=== PATIENT | female | born 1935 | race Caucasian/White ===

== ENCOUNTER 2017-10-10 20:38 | Emergency (ER) | payer BC, MEDICARE ==
--- NOTE | 2017-10-10 21:21 | Emergency Department Record ---
History of Present Illness - General Chief complaint: Pain Stated complaint: RT SHOULDER PAIN Time Seen by Provider: 10/10/17 20:53 Source: Patient Mode of Arrival: Ambulatory Limitations: No limitations - History of Present Illness Initial comments: 81 yo female presents with right shoulder and elbow pain. She had a mild fall 3 weeks ago against a door. She had mild pain. The last week the right shoulder pain has increased. She has pain with any movement, lifting, weight bearing. No swelling. No weakness. No numbness. She has not seen her doctor about this problem because she thought it would self resolve. She is taking Excedrin for the pain. Dr Cain is her PCP. MD Complaint: Joint pain Onset/Timin -: Week(s) Location: Right, Shoulder -: Yes Arthralgia Radiation: None, Proximal Severity scale (1-10): 8 Quality: Aching Consistency: Constant Improves with: Nothing Worsens with: Nothing Associated Symptoms: Denies other symptoms - Related Data Previous Rx's Medication Instructions Recorded Acetaminop W/ Codeine 300/30Mg 1 tab PO Q6H #12 tab 10/10/17 [Tylenol #3] Allergies Allergy/AdvReac Type Severity Reaction Status Date / Time No Known Allergies Allergy Unverified 10/03/16 14:03 Travel Screening - Travel/Exposure Within Last 30 Days Have you traveled within the last 30 days?: No Review of Systems Constitutional: Denies: Chills, Fever, Malaise, Weakness Eyes: Denies: Eye discharge, Vision change (chronic blindness) ENT: Denies: Congestion Respiratory: Denies: Cough, Dyspnea, Hemoptysis, Wheezes Cardiovascular: Denies: Chest pain, Syncope Endocrine: Denies: Fatigue Gastrointestinal: Denies: Abdominal pain, Diarrhea, Nausea, Vomiting Genitourinary: Denies: Dysuria, Urgency Musculoskeletal: Reports: As per HPI, Arthralgia Skin: Denies: Bruising, Change in color, Rash Neurological: Denies: Headache, Numbness, Weakness Psychiatric: Denies: Anxiety Hematological/Lymphatic: Denies: Easy bleeding, Easy bruising Past Medical History - SOCIAL HISTORY Smoking Status: Never smoker Alcohol Use: None Drug Use: None - RESPIRATORY Hx Respiratory Disorders: Yes Hx COPD: Yes - CARDIOVASCULAR Hx Cardio Disorders: No - NEURO Hx Neuro Disorders: Yes Comment:: Right eye Stroke - GI Hx GI Disorders: No - Hx Genitourinary Disorders: No - ENDOCRINE Hx Endocrine Disorders: No - MUSCULOSKELETAL Hx Musculoskeletal Disorders: No - PSYCH Hx Psych Problems: No - HEMATOLOGY/ONCOLOGY Hx Hematology/Oncology Disorders: No Family Medical History Any Significant Family History?: No Course Vital Signs 10/10/17 21:02 Temperature 97.8 F Pulse Rate [ 54 L Pulse Ox Probe] Respiratory 16 Rate Blood Pressure 117/69 [Left Arm] Pulse Ox 96 - Reevaluation(s) Reevaluation #1: The XR of the shoulder and elbow reviewed. No acute fracture Severe osteopenia Degenerative changes noted. 10/10/17 21:35 10/10/17 22:13 Disposition Disposition: Discharge Clinical Impression: Shoulder arthralgia Qualifiers: Laterality: right Qualified Code(s): M25.511 - Pain in right shoulder Disposition: Home, Self-Care Condition: (1) Good Instructions: Arthralgia (ED) Additional Instructions: Ice the shoulder Call your doctor tomorrow to be seen You have been referred to Dr Lara in the pain continues If you take a Tylenol with codeine take fiber or a stool softner as this can cause constipation You will need to assist her will all walking has she can be a fall risk Prescriptions: Acetaminop W/ Codeine 300/30Mg [Tylenol #3] 1 tab PO Q6H #12 tab Referrals: CAREN LARA [DOCTOR OF OSTEOPATH] - Forms: Patient Portal Access Time of Disposition: 22:15 Quality - Quality Measures Quality Measures: N/A - Blood Pressure Screening Does Patient Have Any of the Following: No Blood Pressure Classification: Normal BP Reading Systolic Measurement: 117 Diastolic Measurement: 69 Screening for High Blood Pressure: < Normal BP, F/U Not Required > [G8783]
[2017-10-10] MEDS ORDERED: ACETAMINOPHEN W/ CODEINE 300MG/30MG TABLET PO ONE (22:00)
--- NOTE | 2017-10-12 23:28 | RADIOLOGY REPORT ---
EXAM: SHOULDER, RIGHT HISTORY: PAIN. TECHNIQUE: Three views of the right shoulder were performed. FINDINGS: There is severe osteopenia. No definitive fracture or dislocation is appreciated. IMPRESSION: SEVERE OSTEOPENIA. NO DEFINITIVE FRACTURE OR DISLOCATION. JOB NUMBER: [id number] MTDD
== END 2017-10-10 22:30 | disposition home or self-care (01) ==
LOC: ER 20:38
DX: G89.11 Acute pain due to trauma (principal); M25.511 Pain in right shoulder; M25.521 Pain in right elbow; J44.9 Chronic obstructive pulmonary disease, unspecified
CPT/HCPCS: 99283

== ENCOUNTER 2018-11-27 18:52 | Emergency (ER) | payer MEDICARE, BC ==
[2018-11-27] MEDS ORDERED: MORPHINE SULFATE 10MG/1ML **1ML VIAL IVP ONE (19:15)
[2018-11-27] MEDS ORDERED: 0.9 % SODIUM CHLORIDE 1000ML 500 ML IV SCH (19:15)
[2018-11-27] MEDS ORDERED: ONDANSETRON HCL IV 4 MG/2 ML VIAL IVP ONE (19:15)
--- NOTE | 2018-11-27 19:19 | Emergency Department Record ---
History of Present Illness - General Chief Complaint: Back Pain/Injury Stated Complaint: LOWER BACK PAIN Time Seen by Provider: 11/27/18 18:56 Source: Patient Mode of Arrival: Stretcher Limitations: No limitations - History of Present Illness Initial Comments: 82 yo female presents to ED for evaluation of low-back pain symptoms that began this morning, denies specific injury, but reports that she slept on a family member's bed last night that she is unaccustomed to. Patient reports that she is unable to stand from sitting or supine, denies numbness or weakness to the lower extremities. Patient denies urinary retention symptoms or numbness over t he groin region. Patient has not taken anything for pain as she does not ahve anything for pain at home. MD Complaint: Back pain Onset/Timin -: Hour(s) Similar Symptoms Previously: No Place: Home Severity: Moderate Severity scale (1-10): 9 Quality: Sharp, Stabbing Consistency: Constant Improves With: None Worsens With: Movement, Walking Context: Other Associated Symptoms: Denies other symptoms - Related Data Previous Rx's Medication Instructions Recorded Hydrocodone/Acetaminophen [Idanha 1 tab PO Q6H PRN #10 tab 11/27/18 5mg/325mg] Allergies Allergy/AdvReac Type Severity Reaction Status Date / Time No Known Drug Allergies Allergy Verified 11/27/18 19:10 Travel Screening - Travel/Exposure Within Last 30 Days Have you traveled within the last 30 days?: No - Travel/Exposure Within Last Year Have you traveled outside the [place] in the last year?: No - Additonal Travel Details Have you been exposed to anyone with a communicable illness?: No - Travel Symptoms Symptom Screening: None Review of Systems Constitutional: Denies: Chills, Fever, Malaise, Night sweats Eyes: Denies: Eye discharge, Eye pain ENT: Denies: Congestion, Ear pain, Epistaxis Respiratory: Denies: Cough, Dyspnea Cardiovascular: Denies: Chest pain, Dyspnea on exertion Endocrine: Denies: Fatigue, Heat or cold intolerance Gastrointestinal: Denies: Abdominal pain, Nausea, Vomiting Genitourinary: Denies: Incontinence, Retention Musculoskeletal: Reports: Back pain. Denies: Arthralgia, Gout, Joint swelling Skin: Denies: Bruising, Change in color Neurological: Denies: Abnormal gait, Confusion, Headache, Seizure Psychiatric: Denies: Anxiety Hematological/Lymphatic: Denies: Anemia, Blood Clots Past Medical History - SOCIAL HISTORY Smoking Status: Current every day smoker Alcohol Use: Occasional Drug Use: None - RESPIRATORY Hx Respiratory Disorders: Yes Hx COPD: Yes Hx Pneumonia: Yes - CARDIOVASCULAR Hx Cardio Disorders: No - NEURO Hx Neuro Disorders: Yes Comment:: Right eye Stroke - GI Hx GI Disorders: No - Hx Genitourinary Disorders: No - ENDOCRINE Hx Endocrine Disorders: No - MUSCULOSKELETAL Hx Musculoskeletal Disorders: No - PSYCH Hx Psych Problems: No - HEMATOLOGY/ONCOLOGY Hx Hematology/Oncology Disorders: No Family Medical History Any Significant Family History?: No Physical Exam - General General Appearance: Alert, Oriented x3, Cooperative, Moderate distress Limitations: No limitations - Head Head exam: Atraumatic, Normocephalic, Normal inspection Head exam detail: negative: Abrasion, Contusion, Johnson's sign, General t enderness, Hematoma, Laceration - Eye Eye exam: Normal appearance. negative: Conjunctival injection, Periorbital swelling, Periorbital tenderness, Scleral icterus - ENT Ear exam: negative: Auricular hematoma, Auricular trauma Nasal Exam: negative: Active bleeding, Discharge, Dried blood, Foreign body Mouth exam: negative: Drooling, Laceration, Muffled voice, Tongue elevation - Neck Neck exam: Normal inspection. negative: Meningismus, Tenderness - Respiratory Respiratory exam: Normal lung sounds bilaterally. negative: Rales, Respiratory distress, Rhonchi, Stridor - Cardiovascular Cardiovascular Exam: Regular rate, Normal rhythm, Normal heart sounds - GI/Abdominal GI/Abdominal exam: Soft. negative: Rebound, Rigid, Tenderness - Rectal Rectal exam: Deferred - exam: Deferred - Extremities Extremities exam: Normal inspection. negative: Pedal edema, Tenderness - Back Back exam: Reports: Paraspinal tenderness, Tenderness (TTP along the left SI joint, paraspinal region on examination) - Neurological Neurological exam: Alert, Oriented X3, Other (EHL 5/5 and symmetric bilaterally). negative: Motor sensory deficit - Psychiatric Psychiatric exam: Normal affect, Normal mood - Skin Skin exam: Normal color. negative: Abrasion Type of lesion: negative: abrasion Course Vital Signs 11/27/18 19:01 Temperature 98.3 F Pulse Rate 74 Respiratory 20 Rate Blood Pressure 143/84 Pulse Ox 98 - Reevaluation(s) Reevaluation #1: 11/27/18 19:42 Laboratory studies were reviewed and appear grossly unremarkable for an acute process. Reevaluation #2: 11/27/18 20:08 Patient reassessed, reports that her pain symptoms are significantly improved. CT interpretation pending. Reevaluation #3: 11/27/18 20:24 CT Lumbar Spine: Moderate spondylolisthesis Scattered disc bulging from L2-L3 to L5-S1 Diffuse neural-foraminal narrowing No acute fracture identified. Reevaluation #4: 11/27/18 21:07 UA reviewed and appears negative for an acute process. Patient continues to report improvement in her pain symptoms, appears stable for discharge at this time. Medical Decision Making - Lab Data Result diagrams: 11/27/18 19:20 11/27/18 19:20 Disposition Disposition: Discharge Clinical Impression: Low back pain Qualifiers: Chronicity: acute Back pain laterality: left Sciatica presence: with sciatica Sciatica laterality: sciatica of left side Qualified Code(s): M54.42 - Lumbago with sciatica, left side Disposition: Home, Self-Care Condition: (2) Stable Instructions: Low Back Strain (ED) Additional Instructions: Return to ED if your symptoms worsen or if you have any concerns. Idanha as directed. Follow-up with your family doctor in 3-5 days as directed. Prescriptions: Hydrocodone/Acetaminophen [Idanha 5mg/325mg] 1 tab PO Q6H PRN #10 tab PRN Reason: Pain - General Forms: Patient Portal Access Time of Disposition: 21:09 Quality - Quality Measures Quality Measures: N/A - Blood Pressure Screening Does Patient Have Any of the Following: No Blood Pressure Classification: Pre-Hypertensive BP Reading Systolic Measurement: 143 Diastolic Measurement: 84 Screening for High Blood Pressure: < Pre-Hypertensive BP, F/U Documented > [G8950] Pre-Hypertensive Follow-up Interventions: Referral to alternative/primary care provider.
[2018-11-27 19:24] LABS: ABSOLUTE NEUTROPHIL COUNT 3.83; BASO % 0.9 % (0-6); EOS % 3.1 % (0-6); GRAN % 57.1 % (47-80); HEMATOCRIT 38.7 % (35.0-47.0); HEMOGLOBIN 12.6 gm/dl (11.6-16.0); LYMPH % 29.7 % (16-45); MEAN CELL VOLUME 96.5 fl (81-97); MEAN CORPUSCULAR HEMOGLOBIN 31.4 pg (27-33); MEAN CORPUSCULAR HGB CONC 32.6 g/dl (32-36); MEAN PLATELET VOLUME 8.8 fl (7.4-10.4); MONO % 9.2 % (0-9); PLATELET COUNT 260 K/uL (130-400); RED BLOOD COUNT 4.01 M/uL (3.80-5.40); RED CELL DISTRIBUTION WIDTH 13.4 % (11.5-14.5); WHITE BLOOD COUNT W/O DIFF 6.7 K/uL (4.2-12.2)
[2018-11-27 19:33] LABS: BILIRUBIN,TOTAL 0.2 mg/dL (0.2-1.0); TOTAL PROTEIN 6.5 g/dL (6.6-8.7)
[2018-11-27 19:38] LABS: ALB/GLOB RATIO 1.5 (1.1-1.8); ALBUMIN 3.9 g/dL (4.0-5.0)
[2018-11-27 20:46] LABS: URINE APPEARANCE CLEAR; URINE BILIRUBIN NEGATIVE (NEGATIVE); URINE BLOOD NEGATIVE (NEGATIVE); URINE COLOR YELLOW; URINE GLUCOSE (UA) NEGATIVE (NEGATIVE); URINE KETONE NEGATIVE (NEGATIVE); URINE LEUKOCYTE ESTERASE TRACE (NEGATIVE); URINE NITRITE NEGATIVE (NEGATIVE); URINE PROTEIN NEGATIVE (NEGATIVE); URINE UROBILINOGEN 0.2 E.U./dL (0.20 - 1.00)
[2018-11-27 21:00] LABS: URINE RBC 0 - 2 (NONE SEEN); URINE WBC 0 - 2 (0-2/hpf)
--- NOTE | 2018-11-29 21:05 | CT SCAN REPORT ---
EXAM: CT SCAN LUMBAR SPINE WO CONTRAST HISTORY: LEFT HIP AND LOW BACK PAIN. TECHNIQUE: Routine noncontrast CT images of the lumbar spine were obtained. FINDINGS: Within the visualized abdomen and pelvis, there is a lobulated serosal surface contour to the liver, probably reflecting cirrhosis. There is bilateral, presumably chronic, perinephric fat stranding. There is cholelithiasis. Small hiatal hernia. Colonic diverticulosis. There is grade 1 anterolisthesis L5-S1. No fracture or significant loss of vertebral body height. Moderate degenerative disc disease, most pronounced at L2-3 and L4-5. Moderate facet hypertrophy L2-3, L3-4, L4-5, and moderate to severe facet hypertrophy L5-S1. There appears to be diffuse disc bulging from L2-3 through L5-S1. This combined with facet hypertrophy results in a component of central canal narrowing. This is at least moderate range with suboptimal assessment, given non-myelographic technique. There also appears to be at least moderate range bilateral neural foraminal narrowing, also essentially extending from L2-3 through L5-S1. IMPRESSION: 1. EXTENSIVE LUMBAR SPONDYLOSIS. THIS APPEARS TO CAUSE AT LEAST MODERATE CENTRAL CANAL NEURAL FORAMINAL NARROWING FROM L2-3 THROUGH L5-S1. ULTIMATELY, MR IMAGING WOULD BE RECOMMENDED FOR FURTHER ASSESSMENT CLINICALLY INDICATED. 2. COLONIC DIVERTICULOSIS. CHOLELITHIASIS . SUGGESTION OF HEPATIC CIRRHOSIS. JOB NUMBER: [id number] [facility]
== END 2018-11-27 21:24 | disposition home or self-care (01) ==
LOC: ER 18:52
DX: M54.42 Lumbago with sciatica, left side (principal); J44.9 Chronic obstructive pulmonary disease, unspecified; F17.210 Nicotine dependence, cigarettes, uncomplicated
CPT/HCPCS: 72131; 80053; 81001; 85025; 96374; 96375; 99284; J2270; J2405; J7030